=== PATIENT | male | born 1935 | race Caucasian/White ===

== ENCOUNTER 2022-06-25 12:07 | Emergency (ER) | payer MEDICARE, OTHER ==
[2022-06-25 12:59] LABS: #Eosinphils 0.1 10x3/uL (0.0-0.5); #Monocytes 0.5 10x3/uL (0.0-1.1); #Neutrophils 1.8 10x3/uL (1.5-8.4); %Basophils 0.8 % (0.0-2.0); %Eosinophils 2.3 % (0.0-6.0); %Lymphocytes 37.9 % (18.0-47.0); %Monocytes 12.6 % (0.0-10.0); %Neutrophils 46.4 % (40.0-75.0); Hemoglobin 13.4 g/dL (13.5-17.5); Mean Corpuscular HGB CONC 33.5 g/dL (32.0-36.0); Mean Corpuscular Hemoglobin 29.8 pg (27.0-33.0); Mean Corpuscular Volume 89.1 fl (81.2-95.1); Mean Platelet Volume 10.8 fl (7.4-10.4); Platelet Count 129 10x3/uL (150-450); RBC Distribution Width 14.1 % (11.5-14.5); Red Blood Cell (RBC) Count 4.49 10x6/uL (4.32-5.72); White Blood Cell (WBC) Count 3.9 10x3/uL (3.5-10.5)
[2022-06-25 13:22] LABS: ALT (SGPT) 29 U/L (8-55); AST (SGOT) 29 U/L (5-34); Albumin 3.7 g/dL (3.4-4.8); Alkaline Phosphatase 201 U/L (40-110); Anion Gap 13 mmol/L (10-20); BUN (Urea Nitrogen) 24 mg/dL (8.4-25.7); Bilirubin, Total 0.4 mg/dL (0.2-1.2); Calc. Creatinine Clearance 0 mL/min (70-130); Calcium 8.9 mg/dL (7.8-10.44); Carbon Dioxide 22 mmol/L (23-31); Chloride 109 mmol/L (98-107); Estimated GFR 65; Globulin 2.5 g/dL (2.4-3.5); Glucose 154 mg/dL (83-110); Potassium 3.4 mmol/L (3.5-5.1); Protein, Total 6.2 g/dL (5.8-8.1); Sodium 141 mmol/L (136-145)
== END 2022-06-25 15:12 | disposition home or self-care (01) ==
LOC: CSHERS 12:07
DX: R25.1 Tremor, unspecified (principal); I10 Essential (primary) hypertension; F17.200 Nicotine dependence, unspecified, uncomplicated
CPT/HCPCS: 36415; 70450; 71045; 80053; 84484; 85025; 93005

== ENCOUNTER 2023-02-22 08:53 | Outpatient (CLI) | payer MEDICARE, OTHER | END 2023-02-22 08:54 | disposition home or self-care (01) | LOC: CSHMRI 08:53 | PROVIDERS: ATTEND Urology | DX: R97.20 Elevated prostate specific antigen [PSA] (principal) | CPT/HCPCS: 72197; 82565 ==

== ENCOUNTER 2023-09-14 07:23 | Outpatient (CLI) | payer MEDICARE, OTHER ==
[2023-09-14] MEDS ORDERED: Iopamidol 300 61% 100 ML VIAL FS ONE (12:39)
== END 2023-09-14 07:24 | disposition home or self-care (01) ==
LOC: CSHCT 07:23
PROVIDERS: ATTEND Family Medicine
DX: R91.8 Other nonspecific abnormal finding of lung field (principal); J98.4 Other disorders of lung; J18.8 Other pneumonia, unspecified organism; J90 Pleural effusion, not elsewhere classified; J43.9 Emphysema, unspecified; R16.0 Hepatomegaly, not elsewhere classified; D73.9 Disease of spleen, unspecified; C74.92 Malignant neoplasm of unspecified part of left adrenal gland
CPT/HCPCS: 71260; Q9967